=== PATIENT | female | born 1945 | race Caucasian/White ===

== ENCOUNTER → 2017-06-20 | Outpatient (CLI) | payer MEDICARE, OTHER ==
--- NOTE | 2017-06-20 13:51 | NM ---
EXAMINATION TYPE: NM bone 3 phase DATE OF EXAM: 06/20/2017 COMPARISON: NONE HISTORY: M86.8X8 osteomylitis rt toe Triple phase bone scintigraphy was performed following the injection of26.0 mCi Tc 99m MDP. Immediat e images and 5.25 hours post injection images acquired. FINDINGS: On all 3 phases of the examination there is increased radiotracer accumulation involving the right ri ght toe at its distal phalanx. The findings are felt to be compatible with underlying osteomyelitis. There is mild degenerative uptake about the mid feet and ankles. IMPRESSION: Findings felt to reflect osteomyelitis involving the distal phalanx of the right great toe.
== END ==
LOC: RADNMMAIN 07:24
PROVIDERS: ATTEND Internal Medicine Infectious Disease
DX: M86.8X8 Other osteomyelitis, other site (principal)
CPT/HCPCS: 78315; A9503

== ENCOUNTER 2018-07-13 09:21 | Day surgery (SDC) | payer MEDICARE, OTHER ==
[2018-07-11 14:46] VITALS: BMI 39.6
[~2018-07-13 09:21] MED LIST: LACTATED RINGERS 1,000 ML IV SCH
[2018-07-13 09:49] LABS: Glucose,Whole Blood 93 mg/dL (75-99)
[2018-07-13 09:56] VITALS: RESP 18; TEMP 97.8
[2018-07-13] MEDS ORDERED: LACTATED RINGERS 1,000 ML IV ONE (09:56)
[2018-07-13] MEDS ORDERED: LIDOCAINE 1% 20 ML VIAL (10MG/ML) FOR IV START INTRADERMA ONE (09:57)
[2018-07-13] MEDS ORDERED: PROPOFOL 10 MG/ML 20 ML VIAL IV ONE (10:06)
[2018-07-13 11:26] LABS: Glucose,Whole Blood 81 mg/dL (75-99)
--- NOTE | 2018-07-13 11:32 | P.PCN ---
Date of Procedure: 07/13/18 Description of Procedure: BRIEF HISTORY: Patient is a 72-year-old pleasant female scheduled for an elective colonoscopy as a part of screening. The patient has a family history of colon cancer in her brother was diagnosed in his 70s. Patient has a medical history significant for diabetes mellitus, hypertension, peripheral vascular disease, hypothyroidism and dyslipidemia. She had testing with a stool sample which was found positive for occult blood. PROCEDURE PERFORMED: Colonoscopy with polypectomy. PREOPERATIVE DIAGNOSIS: Stool positive for occult blood, family history of colon cancer, no prior colonoscopy. ESTIMATED BLOOD LOSS: Minimal. IV sedation per Anesthesia. PROCEDURE: After informed consent was obtained, the patient, was brought into the endoscopy unit. IV sedation was administered by Anesthesia under continuous monitoring. Digital rectal examination was normal. Initially the Olympus CF- 190 flexible video colonoscope was then inserted in the rectum, gradually advanced into the cecum without any difficulty. Careful examination was performed as the scope was gradually being withdrawn. Ileocecal valve and the appendiceal orifice were visualized and appeared normal. The terminal ileum was intubated and appeared normal. Prep was good. Mucosa of the cecum, ascending colon, transverse colon, descending colon, sigmoid colon, and rectum appeared normal. Polypectomy was performed in the proximal ascending colon with a 3 mm flat polyp located on a fold which was removed with cold forceps. A second polyp was removed in the distal ascending colon, it was approximately 4 mm in size and removed with cold forceps. The patient had mild scattered diverticulosis in the sigmoid and descending colon Retroflexion was performed in the rectum and no lesions were seen. Internal hemorrhoids were noted. The patient tolerated the procedure well. IMPRESSION: 1. 2 sessile diminutive polyps in the ascending colon removed with cold forceps. 2. Diverticulosis. 3. Internal hemorrhoids RECOMMENDATIONS: Findings of this examination were discussed with the patient. Okay to resume diet today. Okay to resume antiplatelet agents today. Await pathology. Repeat colonoscopy in 5 years if pathology shows tubular adenomas.
[2018-07-13 11:47] VITALS: BP 106/65; PULSE 68
== END 2018-07-13 11:52 | disposition home or self-care (01) ==
LOC: ORWHC2ENDO 09:21
PROVIDERS: ATTEND Internal Medicine
DX: D12.2 Benign neoplasm of ascending colon (principal); D12.4 Benign neoplasm of descending colon; K57.30 Diverticulosis of large intestine without perforation or abscess without bleeding; K64.8 Other hemorrhoids; R19.5 Other fecal abnormalities; Z80.0 Family history of malignant neoplasm of digestive organs; I10 Essential (primary) hypertension; E11.51 Type 2 diabetes mellitus with diabetic peripheral angiopathy without gangrene; E03.9 Hypothyroidism, unspecified; E78.5 Hyperlipidemia, unspecified; Z79.82 Long term (current) use of aspirin; Z79.890 Hormone replacement therapy; Z79.899 Other long term (current) drug therapy; Z79.4 Long term (current) use of insulin; Z88.1 Allergy status to other antibiotic agents; Z88.2 Allergy status to sulfonamides; Z88.8 Allergy status to other drugs, medicaments and biological substances; Z98.51 Tubal ligation status
CPT/HCPCS: 88305; 45380; J2704

== ENCOUNTER 2019-06-08 21:50 | Emergency (ER) | payer MEDICARE, OTHER ==
[2019-06-09] MEDS: CLINDAMYCIN 150 MG CAP PO STA ×2 (00:53→00:55)
[2019-06-09] MEDS ORDERED: LIDOCAINE 1% INJ 10MG/ML (20 ML MDV) SQ STA (00:58)
[2019-06-09] MEDS ORDERED: CLINDAMYCIN 900 MG in DEXTROSE 5% IN WATER 50 ML IVPB ONE ×2 (01:00)
[2019-06-09] MEDS ORDERED: LIDOCAINE 1%-EPI 1:100,000 20 ML VIAL SQ STA (01:06)
[2019-06-09] MEDS ORDERED: AMOXIC-POT CLAV 875MG STARTER 2 EACH TABLET PO STA (01:36)
--- NOTE | 2019-06-09 01:36 | ED ---
General Adult HPI - General Source: patient, RN notes reviewed, old records reviewed Mode of arrival: wheelchair Limitations: no limitations <Ender Smith - Last Filed: 06/09/19 01:38> <Daryl Bass - Last Filed: 06/09/19 02:10> - General Chief complaint: ENT Stated complaint: Throat Pain Time Seen by Provider: 06/08/19 22:13 - History of Present Illness Initial comments: 73-year-old female patient presents ED chief complaint of peritonsillar abscess. Patient was seen at [facility] where she underwent a CT soft tissue neck with contrast which displayed a approximate 2 cm left peritonsillar abscess. Patient had ED since she was transferred here.Patient patient reports that she has had a sore throat for approximately 8 days. Denies any other complaints. Patient is a diabetic. Systemic: Pt denies fatigue, fever/chills, rash. Pt denies weakness, night sweats, weight loss. Neuro: Pt denies headache, visual disturbances, syncope or pre-syncope. HEENT: Pt denies ocular discharge or irritation, otalgia, rhinorrhea, pharyngitis or notable lymphadenopathy. Cardiopulmonary: Pt denies chest pain, SOB, heart palpitations, dyspnea on exertion. Abdominal/GI: Pt denies abdominal pain, n/v/d. : Pt denies dysuria, burning w/ urination, frequency/urgency. Denies new onset urinary or bowel incontinence. MSK: Pt denies myalgia, loss of strength or function in extremities. Neuro: Pt denies new onset weakness, paresthesias. (Ender Smith) - Related Data Home Medications Medication Instructions Recorded Confirmed Aspirin 81 mg PO DAILY 04/08/16 06/08/19 INSULIN LISPRO (HumaLOG) [humaLOG] See Protocol SQ AC-TID PRN 04/08/16 06/08/19 Insulin Glargine [Lantus] 30 unit SQ HS 04/08/16 06/08/19 Ranitidine HCl [Zantac] 150 mg PO BID 04/08/16 06/08/19 amLODIPine [Norvasc] 5 tab PO BID 04/08/16 06/08/19 metFORMIN HCL [Glucophage] 500 mg PO DIRECTED 04/08/16 06/08/19 Atorvastatin [Lipitor] 40 mg PO HS 10/23/18 09/20/19 Cilostazol [Pletal] 100 mg PO BID 07/11/18 06/08/19 Ergocalciferol (Vitamin D2) 50,000 unit PO ALBERTO 07/11/18 06/08/19 [Vitamin D2] Ferrous Sulfate [Feosol] 325 mg PO TID 07/11/18 06/08/19 Levothyroxine Sodium [Synthroid] 50 mcg PO DAILY 07/11/18 06/08/19 Metoprolol Tartrate [Lopressor] 25 mg PO BID 07/11/18 06/08/19 Lisinopril 40 mg PO DAILY 06/08/19 06/08/19 Previous Rx's Medication Instructions Recorded Amoxicillin/Potassium Clav 1 each PO Q12HR #20 tab 06/09/19 [Augmentin 875-125 Tablet] Allergies Allergy/AdvReac Type Severity Reaction Status Date / Time ketoconazole Allergy Itching Verified 06/08/19 22:29 sulfamethoxazole Allergy Unknown Verified 06/08/19 22:29 [From Bactrim] trimethoprim [From Bactrim] Allergy Unknown Verified 06/08/19 22:29 carvedilol AdvReac Wheezing Verified 06/08/19 22:29 levofloxacin [From Levaquin] AdvReac Unknown Verified 06/08/19 22:29 Review of Systems ROS Other: All systems not noted in ROS Statement are negative. <Ender Smith - Last Filed: 06/09/19 01:38> ROS Other: All systems not noted in ROS Statement are negative. <Daryl Bass - Last Filed: 06/09/19 02:10> ROS Statement: Those systems with pertinent positive or pertinent negative responses have been documented in the HPI. Past Medical History Past Medical History: Cancer, Diabetes Mellitus, GERD/Reflux, Hyperlipidemia, Hypertension Additional Past Medical History / Comment(s): WOUND RT GREAT TOE-STATES SCAB IN PLACE WITH DRESSING., POOR CIRCULATION., HYSTERECTOMY DUE TO CANCER. BLADDER LEAKAGE., ANEMIA., DIARRHEA. History of Any Multi-Drug Resistant Organisms: None Reported Past Surgical History: Cholecystectomy, Hysterectomy, Tubal Ligation Past Anesthesia/Blood Transfusion Reactions: No Reported Reaction Past Psychological History: No Psychological Hx Reported Smoking Status: Never smoker Past Alcohol Use History: None Reported Past Drug Use History: None Reported - Past Family History Mother Family Medical History: Diabetes Mellitus Brother(s) Family Medical History: Cancer Additional Family Medical History / Comment(s): COLON CANCER Sister(s) Family Medical History: Cancer Additional Family Medical History / Comment(s): BREAST CANCER <Ender Smith - Last Filed: 06/09/19 01:38> General Exam Limitations: no limitations <Ender Smith - Last Filed: 06/09/19 01:38> - General Exam Comments Initial Comments: Constitutional: NAD, AOX3, Pt has pleasant affect. HEENT: NC/AT, trachea midline, neck supple, no lymphadenopathy. Posterior pharynx non erythematous, without exudates. Uvula midline, neck supple, no tonsillar fullness, no abscess noted. No Trismus. External ears appear normal, without discharge. Mucous membranes moist. Eyes PERRLA, EOM intact. There is no scleral icterus. No pallor noted. Cardiopulmonary: RRR, no murmurs, rubs or gallops, no JVD noted. Lungs CTAB in anterior and posterior lechuga. No peripheral edema. Abdominal exam: Abdomen soft and non-distended. Abdomen non-tender to palpation in all 4 quadrants. Bowel sounds active in LLQ. No hepatosplenomegaly. No ecchymosis Neuro: CN II-XII grossly intact. No nuchal rigidity. No raccon eyes, no jeffery sign, no hemotympanum. No cervical spinal tenderness. MSK: No posterior calf tenderness bilaterally, homans sign negative bilaterally. Posterior tibialis and radial pulse +2 bilaterally. Sensation intact in upper and lower extremities. Full active ROM in upper and lower extremities, 5/5 stregnth. 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 Bass. ) <Ender Smith - Last Filed: 06/09/19 01:38> Medical Decision Making <Ender Smith - Last Filed: 06/09/19 01:38> <Daryl Bass - Last Filed: 06/09/19 02:10> - Medical Decision Making 73-year-old female patient presents ED chief complaint of peritonsillar abscess. Patient was seen at [facility] where she underwent a CT soft tissue neck with contrast which displayed a approximate 2 cm left peritonsillar abscess. Patient had ED since she was transferred here.Patient patient reports that she has had a sore throat for approximately 8 days. Denies any other complaints. Patient is a diabetic. Pt VSS, afebrile. Physical exam displayed: neck supple, no lymphadenopathy. Posterior pharynx non erythematous, without exudates. Uvula midline, neck supple, no tonsillar fullness, no abscess noted. No Trismus. Laboratory investigations from [facility] displayed a mild cytosis of 12.7. Mildly increased lactic acid mildly elevated at 2.4. Patient was reportedly administered UniSyn, fluids as well as 10 of Decadron. Imaging reveals a 2 cm inflammatory appearing mass in left tonsil consistent with peritonsillar abscess. Case was discussed with on-call ENT Dr. Allen who recommended offering incision drainage. Incision and drainage was offered and performed an patient. This did display mild amount of blood. Performed by Dr. Bass. Patient was Mr. 900 mg clindamycin IV at recommendation of Dr. Allen. Will discharge with Augmentin and outpatient follow-up on Tuesday. Return precautions discussed. Case discussed with Dr. Bass. (Ender Smith) Patient was seen and evaluated along with physician press assistant Ender Smith. Patient was transferred for CT imaging to suggest peritonsillar abscess. Needle aspiration was performed at bedside without any return of significant purulent fluid. Suspicion case with Dr. Allen who requests that patient be discharged with Augmentin after being given 900 mg of clindamycin. She tolerated procedure well. She is in stable medical condition. She is told to follow up with Dr. Allen on Tuesday. Patient reevaluated prior to discharge in stable medical condition. (Daryl Bass) Disposition Is patient prescribed a controlled substance at d/c from ED?: No <Ender Smith - Last Filed: 06/09/19 01:38> Is patient prescribed a controlled substance at d/c from ED?: No Time of Disposition: 02:10 <Daryl Bass Dylan - Last Filed: 06/09/19 02:10> Clinical Impression: Peritonsillar abscess Disposition: HOME SELF-CARE Condition: Stable Instructions (If sedation given, give patient instructions): Peritonsillar Abscess (ED) Additional Instructions: Patient to adhere to previously discussed treatment plan and will take medication(s) as directed. Patient to follow up with PCP in 1-2 days. Patient to return to ED if symptoms do not improve. Take antibiotics as directed. Follow-up with ENT on Tuesday. Return to ER immediately if condition worsens in anyway. Prescriptions: Amoxicillin/Potassium Clav [Augmentin 875-125 Tablet] 1 each PO Q12HR #20 tab Referrals: Richie Gutierrez MD [Primary Care Provider] - 1-2 days Dani Allen MD [STAFF PHYSICIAN] - 1-2 days
[2019-06-09 02:26] VITALS: BP 127/78; PULSE 81; RESP 18; TEMP 97.9
[2019-06-09] MEDS ORDERED: BENZOCAINE SPRAY 1 CAN ONE (03:00)
== END 2019-06-09 02:35 | disposition home or self-care (01) ==
LOC: EC 21:50
DX: J36 Peritonsillar abscess (principal); E11.9 Type 2 diabetes mellitus without complications; K21.9 Gastro-esophageal reflux disease without esophagitis; E78.5 Hyperlipidemia, unspecified; I10 Essential (primary) hypertension; Z79.82 Long term (current) use of aspirin; Z79.4 Long term (current) use of insulin; Z79.890 Hormone replacement therapy; Z79.899 Other long term (current) drug therapy; Z88.1 Allergy status to other antibiotic agents; Z88.2 Allergy status to sulfonamides; Z88.8 Allergy status to other drugs, medicaments and biological substances; Z88.3 Allergy status to other anti-infective agents
CPT/HCPCS: 42700; 96365; 99283